=== PATIENT | female | born 1995 | race Caucasian/White ===

== ENCOUNTER 2017-03-15 20:47 | Emergency (ER) | payer OTHER ==
[2017-03-15] MEDS ORDERED: CEPHALEXIN 500MG PREPACK#4 BTL TAKEHOME ONE (21:05)
--- NOTE | 2017-03-15 21:09 | EDPHY ---
H & P Time Seen by Provider: 03/15/17 20:59 HPI/ROS: CHIEF COMPLAINT: Possible right buttock infection HISTORY OF PRESENT ILLNESS: 21-year-old immunocompetent female, up-to-date tetanus, no history of chronic skin infections or cutaneous MRSA history, states few days ago she accidentally bumped her right buttock against the edge of a counter and notes increasing and progressive erythema and tenderness to this area. She has been puncturing the area intermittently with no discharge. No fever or chills. No nausea or vomiting. No gait instability. PHYSICAL EXAM (Prior to examination, patient consented to physical exam, hands were washed and my usual and customary physical exam procedures followed) 1) GENERAL: Well-developed, well-nourished, alert and oriented. Appears to be in no acute distress. Examination with female nurse Codie at bedside. 2) HEAD: Normocephalic 3) HEENT: sclera anicteric 4) LUNGS: Breathing comfortably. 5) SKIN: the patient's right mid buttock she has a 4 cm x 3 cm area of erythema , induration with no central fluctuance, no drainage, no crepitus. Smoking Status: Current every day smoker Constitutional: Initial Vital Signs Temperature (C) 36.7 C 03/15/17 20:51 Heart Rate 115 H 03/15/17 20:51 Respiratory Rate 16 03/15/17 20:51 Blood Pressure 138/80 H 03/15/17 20:51 O2 Sat (%) 99 03/15/17 20:51 O2 Delivery Mode Room Air Allergies/Adverse Reactions: No Known Allergies Allergy (Unverified 03/15/17 20:55) Home Medications: Medication Instructions Recorded Cephalexin [Keflex] 500 mg PO TID 7 Days cap 03/15/17 MDM/Departure - MDM ED Course/Re-evaluation: Care of patient under supervision of secondary supervising physician Dr Martinez . Patient has infected traumatic wound to her right buttock. She has immunocompetent, afebrile. She is noted to be tachycardic at intake, was anxious and afebrile a presentation. When I examine the patient heart rate is in mid 90s. Doubt sepsis. Doubt abscess. At this time I do not think that incision and drainage is indicated however this may be indicated at a later point and I recommended warm packs to the area several times per day. No history of chronic skin infections or history of cutaneous MRSA. Doubt necrotizing fasciitis. She was started on monotherapy with Keflex. Tetanus is already up-to-date. She feels comfortable with this discharge plan. All questions and concerns addressed by myself. Usual and customary discharge precautions and instructions provided. - Depart Disposition: Home, Routine, Self-Care Clinical Impression: Cellulitis of right buttock Condition: Good Instructions: Wound Infection (ED), Cephalexin (By mouth) Additional Instructions: Return to the ER if you develop redness, swelling, discharge, warmth to the wound, or any other symptoms that concern you. Apply warm compresses to the area several times per day. Do not puncture or pop the area yourself. Prescriptions: Cephalexin [Keflex] 500 mg PO TID 7 Days cap Referrals: Return, to the ER in 2 days for recheck [Other] - As per Instructions
[2017-03-15 21:13] VITALS: BP 117/92; PULSE 80; RESP 18; TEMP 98.2; O2SAT 94
== END 2017-03-15 21:18 | disposition home or self-care (01) ==
DX: L03.317 Cellulitis of buttock (principal); F17.200 Nicotine dependence, unspecified, uncomplicated